=== PATIENT | female | born 1980 | race Caucasian/White ===

== ENCOUNTER 2019-01-17 08:19 | Outpatient (CLI) | payer BC ==
--- NOTE | 2019-01-17 09:08 | RAD ---
LEFT HAND THREE VIEWS: HISTORY: Hand pain. FINDINGS: The metacarpals are unremarkable. The phalanges are unremarkable. MCP and IP joints are unremarkable. No acute abnormality. IMPRESSION: Unremarkable left hand. POS: [facility]
--- NOTE | 2019-01-17 09:10 | RAD ---
RIGHT HAND THREE VIEWS: HISTORY: Hand pain. FINDINGS: The visualized carpals, metacarpals and phalanges are unremarkable. MCP and IP joints are unremarkabl e. No evidence of arthropathy or erosive change. IMPRESSION: Unremarkable right hand. POS: [facility]
--- NOTE | 2019-01-17 09:11 | RAD ---
LEFT FOOT THREE VIEWS: HISTORY: Foot pain. FINDINGS: There is enthesophyte from the plantar calcaneus, measuring approximately 1 cm. The tarsals are other wells unremarkable. The metatarsals and phalanges are unremarkable. The MTP joints are unremarkable wi th minimal DJD at the first MTP joint noted. IMPRESSION: No acute abnormality. Calcaneal spur as described above. 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 POS: [facility]
--- NOTE | 2019-01-17 09:25 | RAD ---
AP PELVIS: HISTORY: Heel pain and pelvic pain. FINDINGS: Femoral heads are normally maintained. Joint spaces are normal. The bony pelvis is unremarkable. N o evidence of degenerative change or osseous abnormality. The SI joints appear normal and symmetric. IMPRESSION: Unremarkable AP pelvis. POS: [facility]
--- NOTE | 2019-01-17 09:30 | RAD ---
RIGHT FOOT THREE VIEWS: HISTORY: Foot pain. FINDINGS: Small enthesophyte from the plantar calcaneus measuring approximately 5 mm. Tarsals otherwise unremar kable. Mild narrowing and DJD at the first MTP joint. The other MTP joints are unremarkable. No other osseous abnormality. IMPRESSION: Small calcaneal spur and minimal degenerative joint disease at the first metatarsophalangeal joint. POS: [facility]
--- NOTE | 2019-01-17 09:34 | RAD ---
BILATERAL KNEES: Upright standing views of both knees AP along with lateral views of both knees obtained. IMPRESSION: Bilateral knee pain. The mediolateral joint spaces are normally maintained bilaterally. Minimal spurring is seen from the posterior patella on the right. No significant spurring is seen from the left patella. No joint ef fusion. No other degenerative change seen. IMPRESSION: Minimal spurring from the posterior patella on the right. Bilateral knees otherwise unremarkable. POS: [facility]
== END 2019-01-17 08:20 | disposition home or self-care (01) ==
LOC: RAD-FRANK 08:19
PROVIDERS: ATTEND Internal Medicine Rheumatology
DX: M25.561 Pain in right knee (principal); M25.562 Pain in left knee; M79.7 Fibromyalgia; M22.2X1 Patellofemoral disorders, right knee; M79.671 Pain in right foot; M79.672 Pain in left foot; M25.541 Pain in joints of right hand; M25.542 Pain in joints of left hand; M19.071 Primary osteoarthritis, right ankle and foot; M77.31 Calcaneal spur, right foot; M19.072 Primary osteoarthritis, left ankle and foot; M77.32 Calcaneal spur, left foot
CPT/HCPCS: 72170; 73565

== ENCOUNTER 2024-12-15 06:18 | Emergency (ER) | payer BC, OTHER ==
[2024-12-15] MEDS ORDERED: Pantoprazole 40 MG VIAL ONE (07:09)
[2024-12-15] MEDS ORDERED: Ondansetron PF 4 MG/2 ML Vial ONE (07:09)
[2024-12-15] MEDS ORDERED: Famotidine/PF 20 mg/2ml Vial ONE (07:09)
[2024-12-15 07:43] LABS: #Basophils 0.03 10x3/uL (0.0-0.2); #Eosinophils 0.07 10x3/uL (0.0-0.7); #Monocytes 0.52 10x3/uL (0.11-0.59); #Neutrophils 5.44 10x3/uL (1.40-6.50); %Basophils 0.4 % (0.0-1.0); %Eosinophils 0.9 % (0.0-10.0); %Lymphocytes 19.8 % (21.0-51.0); %Monocytes 6.9 % (0.0-10.0); %Neutrophils 71.7 % (42.0-75.0); Hematocrit 38.8 % (36.0-47.0); Hemoglobin 12.6 g/dL (12.0-16.0); Mean Corpuscular Hemoglobin 28.3 pg (27.0-31.0); Mean Corpuscular Volume 87.2 fL (78.0-98.0); Platelet Count 264 10x3/uL (130-400); Red Blood Cell (RBC) Count 4.45 mill/uL (4.20-5.40); White Blood Cell (WBC) Count 7.58 10x3/uL (4.8-10.8)
[2024-12-15] MEDS ORDERED: Milk Of Magnesia 30 ML UDCUP ONE (07:59)
[2024-12-15] MEDS ORDERED: Lidocaine Viscous Sol 2% 15 ml UD Cup ONE (07:59)
[2024-12-15 08:11] LABS: ALT (SGPT) 10 U/L (Less than 34); AST (SGOT) 13 U/L (11-34); Albumin 3.6 g/dL (3.1-4.5); Alkaline Phosphatase 55 U/L (40-110); Anion Gap 12 mmol/L (10-20); BUN (Urea Nitrogen) 10 mg/dL (7.0-18.7); Bilirubin, Total 0.2 mg/dL (0.3-1.2); Calc. Creatinine Clearance 0 mL/min (70-130); Calcium 8.9 mg/dL (7.8-10.44); Carbon Dioxide 25 mmol/L (22-29); Chloride 105 mmol/L (98-107); Globulin 2.8 g/dL (2.4-3.5); Glucose 103 mg/dL (70-105); Lipase 15 U/L (8-78); Potassium 4.5 mmol/L (3.5-5.1); Sodium 137 mmol/L (136-145)
[2024-12-15] MEDS ORDERED: Ketorolac Tromethamine 30 MG (1 mL) VIAL ONE (08:54)
[2024-12-15 09:18] LABS: Pregnancy Test - Urine (BHCG) Negative (Negative); Pregu Control Background? CLEAR/WHITE (CLR/WHITE); Pregu Control Bar Appear? YES (CONTROL BAR)
[2024-12-15 09:19] LABS: Bacteria/HPF None Seen HPF (None Seen); CAUTI Indications for Culture Pelvic or flank pain; Glucose, Urine (Dipstick) Normal (Negative); Leukocyte Negative Leu/uL (Negative); Protein, Urine (Dipstick) Negative (Neg-Trace); WBC/HPF 0-3 HPF (0-3)
[2024-12-15 09:21] LABS: Specific Gravity, Urine Greater than 1.050 (1.002-1.036)
[2024-12-15 09:22] LABS: Urine Culture Reflex No No
[2024-12-15] MEDS ORDERED: Iopamidol-370 76% 500 ML MDV (1 ML CHARGE) ONE (12:26)
== END 2024-12-15 10:02 | disposition home or self-care (01) ==
LOC: ERS 06:18
DX: K80.20 Calculus of gallbladder without cholecystitis without obstruction (principal); E03.9 Hypothyroidism, unspecified; F90.9 Attention-deficit hyperactivity disorder, unspecified type; Z79.890 Hormone replacement therapy
CPT/HCPCS: 36415; 74177; 76705; 80053; 81001; 81025; 83690; 84484; 85025; 93005; 96374; 96375; J1308; J1885; J2270; J2405; J2470; Q9967